=== PATIENT | male | born 1970 | race Hispanic/Latino ===

== ENCOUNTER 2018-10-14 13:34 | Inpatient (IN) | payer OTHER ==
--- NOTE | 2018-10-14 14:07 | ED PDOC ---
Arrival/HPI - General Chief Complaint: Abnormal Skin Integrity Time Seen by Provider: 10/14/18 13:34 Historian: Patient - History of Present Illness Narrative History of Present Illness (Text): 48 y/o male with PMH of HTN, colitis presents to the ED sent by Michael Lopez NP, working with Dr. Koehler c/o left hand 3rd digit swelling and redness x 2 weeks. Pt originally had pain in the finger on 10/05/18 and was started on PO Ba ctrim by PMD on 10/06/18 for presumed cellulitis. The finger became more red, swollen, and warm to touch with a collection of pus at the base of the nail. Pt then underwent I&D on the finger at an urgent care center on 10/10/18. Pt was placed on clindamycin but had no improvement, so he was sent into the ED for IV antibiotics today. Denies trauma/injury, fever, chills, numbness, paresthesias, weakness, dizziness, nausea, vomiting, SOB, or any other associated symptoms. Past Medical History - Provider Review Nursing Documentation Reviewed: Yes Primary Care Provider: Shruthi Lopez - Infectious Disease Hx of Infectious Diseases: None - Cardiac Hx Cardiac Disorders: Yes Hx Hypertension: Yes - Pulmonary Hx Respiratory Disorders: No - Neurological Hx Neurological Disorder: No - HEENT Hx HEENT Disorder: No - Renal Hx Renal Disorder: No - Endocrine/Metabolic Hx Endocrine Disorders: No - Hematological/Oncological Hx Blood Disorders: No - Integumentary Hx Dermatological Disorder: No - Musculoskeletal/Rheumatological Hx Musculoskeletal Disorders: No - Gastrointestinal Hx Gastrointestinal Disorders: No - Genitourinary/Gynecological Hx Genitourinary Disorders: No - Psychiatric Hx Psychophysiologic Disorder: No Hx Substance Use: No - Anesthesia Hx Anesthesia: No Hx Anesthesia Reactions: No Hx Malignant Hyperthermia: No Family/Social History - Physician Review Nursing Documentation Reviewed: Yes Family/Social History: No Known Family HX Smoking Status: Never Smoked Hx Alcohol Use: Yes Frequency of alcohol use: Socially Hx Substance Use: No Allergies/Home Meds Allergies/Adverse Reactions: Allergies Penicillins Allergy (Verified 10/14/18 15:58) URTICARIA Home Medications: Home Meds Medication Instructions Recorded Confirmed Azilsartan Med/Chlorthalidone 12.5 mg PO DAILY 10/14/18 10/14/18 [Edarbyclor 40-12.5 mg Tablet] Clindamycin [Cleocin] 300 mg PO Q6 10/14/18 10/14/18 Latanoprost [Xalatan] 1 drop OD DAILY 10/14/18 10/14/18 Mesalamine [Lialda] 2.4 gm PO DAILY 10/14/18 10/14/18 Review of Systems - Review of Systems Constitutional: Normal. absent: Fevers Eyes: Normal. absent: Vision Changes ENT: Normal. absent: Sore Throat, Sinus Congestion Respiratory: Normal. absent: SOB, Cough Cardiovascular: Normal. absent: Chest Pain, Palpitations, Syncope Gastrointestinal: Normal. absent: Abdominal Pain, Nausea, Vomiting Genitourinary Male: Normal. absent: Dysuria, Frequency Musculoskeletal: Normal. absent: Back Pain, Neck Pain Skin: Cellulitis Neurological: Normal. absent: Headache, Dizziness Physical Exam Vital Signs Reviewed: Yes Vital Signs Temp Pulse Resp BP Pulse Ox 10/14/18 13:44 97.9 F 101 H 18 145/81 98 Temperature: Afebrile Blood Pressure: Normal Pulse: Tachycardic Respiratory Rate: Normal Appearance: Positive for: Well-Appearing, Non-Toxic, Comfortable Pain Distress: None Mental Status: Positive for: Alert and Oriented X 3 - Systems Exam Head: Present: Atraumatic, Normocephalic Pupils: Present: PERRL Extroacular Muscles: Present: EOMI Conjunctiva: Present: Normal Mouth: Present: Moist Mucous Membranes Neck: Present: Normal Range of Motion Respiratory/Chest: Present: Clear to Auscultation, Good Air Exchange. No: Respiratory Distress, Accessory Muscle Use Cardiovascular: Present: Regular Rate and Rhythm, Normal S1, S2. No: Murmurs Abdomen: No: Tenderness, Distention, Peritoneal Signs Back: Present: Normal Inspection Upper Extremity: Present: NORMAL PULSES, Tenderness ( distal left hand 3rd digit over DIP and distal phalanx), Swelling (distal left hand 3rd digit at base of nail with purulent drainage; no fluctuance), Erythema (distal left hand 3rd digit with streaking proximally), Neurovascularly Intact, Temperature Abnormalties (warmth to distal left hand 3rd digit), Capillary Refill < 2s. No: Cyanosis, Edema, Normal ROM (decreased left hand 3rd digit DIP) Lower Extremity: Present: Normal Inspection. No: Edema Neurological: Present: GCS=15, CN II-XII Intact, Speech Normal, Motor Func Grossly Intact, Normal Sensory Function, Gait Normal Skin: Present: Warm, Dry, Normal Color. No: Rashes Psychiatric: Present: Alert, Oriented x 3, Normal Insight, Normal Concentration, Normal Affect, Normal Mood Medical Decision Making ED Course and Treatment: Initial Plan: * Labs * Cultures * Left hand XR * IVF Bloodwork reviewed, unremarkable. WBC 11.1 without left shift. XR shows no bony destruction. 15:35 Spoke with [employer] MANAGER Janny who accepted patient for inpatient admission to Dr. Koehler's service. States no preference in antibiotic therapy. Pt allergic to penicillin. Pt with stable vitals at this time, resting comfortably in stretcher. Updated with change in disposition. 17:19 Patient seen at bedside by Dr. Javier for general surgery consult as requested by Dr. Koehler - Lab Interpretations Lab Results: 10/14/18 14:30 10/14/18 14:30 Lab Results 10/14/18 14:40: PT 13.4 H, INR 1.21, APTT 35.5 10/14/18 14:30: Sodium 138, Potassium 3.8, Chloride 100, Carbon Dioxide 26, Anio n Gap 16, BUN 23 H, Creatinine 1.1, Est GFR ( Amer) > 60, Est GFR (Non-Af Amer) > 60, Random Glucose 144 H, Calcium 9.5, Total Bilirubin 0.4, AST 36, ALT 33, Alkaline Phosphatase 72, Total Protein 8.2, Albumin 4.5, Globulin 3.8, Albumin/Globulin Ratio 1.2 10/14/18 14:30: WBC 11.1 H, RBC 5.06, Hgb 14.5, Hct 44.0, MCV 87.0, MCH 28.7, MCHC 33.0, RDW 13.0, Plt Count 395, MPV 10.0, Neut % (Auto) 62.5, Lymph % (Auto) 24.1, [place] % (Auto) 7.1 H, Eos % (Auto) 5.6 H, Baso % (Auto) 0.7, Lymph # (Auto) 2.7, [place] # (Auto) 0.8 H, Eos # (Auto) 0.6, Baso # (Auto) 0.08, Absolute Neuts (auto) 6.94 H I have reviewed the lab results: Yes - RAD Interpretation Narrative RAD Interpretations (Text): 10/14/18 17:30 Left Hand XR: FINDINGS: BONES: There is a soft tissue defect over the dorsum of the 3rd distal phalanx. There is no bony destruction JOINTS: Normal. No osteoarthritic changes. SOFT TISSUES: Normal. OTHER FINDINGS: None. IMPRESSION: There is a soft tissue defect over the dorsum of the 3rd distal phalanx. There is no bony destruction Conveyor Monitor: Radiologist Disposition/Present on Arrival - Present on Arrival Any Indicators Present on Arrival: No History of DVT/PE: No History of Uncontrolled Diabetes: No Urinary Catheter: No History of Decub. Ulcer: No History Surgical Site Infection Following: None - Disposition Have Diagnosis and Disposition been Completed?: Yes Diagnosis: Cellulitis Disposition: HOSPITALIZED Disposition Time: 15:00 Patient Problems: Current Active Problems Problem Status Onset Cellulitis Acute Condition: STABLE
[2018-10-14 14:44] LABS: BASO # 0.08 K/mm3 (0.0-2.0); BASO % 0.7 % (0.0-3.0); EOS # 0.6 (0.0-0.7); EOS % 5.6 % (1.5-5.0); HEMOGLOBIN 14.5 g/dL (14.0-18.0); LYMPH # 2.7 (1.2-3.4); LYMPH % 24.1 % (22.0-35.0); MEAN CORPUSCULAR HEMOGLOBIN 28.7 pg (25.0-35.0); MONO # 0.8 (0.1-0.6); MONO % 7.1 % (1.0-6.0); RBC 5.06 10^6/uL (3.5-6.1); WHITE BLOOD COUNT 11.1 10^3/uL (4.5-11.0)
[2018-10-14 14:48] LABS: ALB/GLOB RATIO 1.2 (1.1-1.8); ALBUMIN 4.5 g/dL (3.0-4.8); ALT/SGPT 33 U/L (7-56); AST/SGOT 36 U/L (17-59); BLOOD UREA NITROGEN 23 mg/dL (7-21); CALCIUM 9.5 mg/dL (8.4-10.5); GFR NON-AFRICAN AMERICAN > 60
[2018-10-14 15:08] LABS: INR 1.21; PARTIAL THROMBOPLASTIN TIME 35.5 Seconds (26.9-38.3); PROTHROMBIN TIME 13.4 SECONDS (9.4-12.5)
[2018-10-14] MEDS ORDERED: Piperacillin/Tazobact 3.375 gm 100 ML IVPB STA (15:32)
[2018-10-14] MEDS ORDERED: Vancomycin 1gm in NS 250ml 1 GM/250 ML BAG IVPB STA ×2 (15:32→15:59)
--- NOTE | 2018-10-14 15:43 | RAD ---
PROCEDURE: Left Hand 3rd digit radiographs. HISTORY: r/o osteo DIP/PIP COMPARISON: None. TECHNIQUE: 3 views obtained. FINDINGS: BONES: There is a soft tissue defect over the dorsum of the 3rd distal phalanx. There is no bony destruction JOINTS: Normal. No osteoarthritic changes. SOFT TISSUES: Normal. OTHER FINDINGS: None. IMPRESSION: There is a soft tissue defect over the dorsum of the 3rd distal phalanx. There is no bony destruction
[2018-10-14] MEDS ORDERED: Clindamycin 600mg/50ml D5W 600 MG/50 ML VIAL IVPB STA (15:55)
[2018-10-14] MEDS: Sodium Chloride 0.9% 1,000 ML IV SCH (16:08)
[2018-10-14] MEDS ORDERED: Bacitracin 500 Units/gm Oint Foilpak UD TOP ONE ×2 (18:14→21:30)
[2018-10-14] MEDS ORDERED: Povidone Iodine Topical 10% Sol TOP ONE (18:14)
[2018-10-14 18:52] VITALS: BMI 34.9
--- NOTE | 2018-10-14 19:37 | CP.PCM.CON ---
History of Present Illness - History of Present Illness History of Present Illness: General Surgery Consult Re: Left 3rd digit cellulitis HPI: 48[address] Koehler to the ED complaining of left hand 3rd digit swelling and redness x 2 weeks. Pain began on 10/05/18 and was lanced later 10/10/18 with some purulent output. Pt has been taking Clindamycin, however, he has not seen much improvement. Pain is now a throbbing in his finger. Denies fever, chills, nausea, emesis, constipation, diarrhea, abd pain, arm pain, chest pain, or any other complaints. PMH: HTN, Ulcerative colitis PSH: Cornea transplant SH: 1 cigar/month, 1x/week social EtOh, no drug use. FH: Mother - HTN Meds: See MAR All: PCN Review of Systems - Review of Systems All systems: reviewed and no additional remarkable complaints except (as per HPI) Past Patient History - Infectious Disease Hx of Infectious Diseases: None - Past Social History Smoking Status: occasional - CARDIAC Hx Cardiac Disorders: Yes Hx Hypertension: Yes - PULMONARY Hx Respiratory Disorders: No - NEUROLOGICAL Hx Neurological Disorder: No - HEENT Hx HEENT Problems: No Other/Comment: right eye cornea transplant - RENAL Hx Chronic Kidney Disease: No - ENDOCRINE/METABOLIC Hx Endocrine Disorders: No - HEMATOLOGICAL/ONCOLOGICAL Hx Blood Disorders: No - INTEGUMENTARY Hx Dermatological Problems: No - MUSCULOSKELETAL/RHEUMATOLOGICAL Hx Musculoskeletal Disorders: No Hx Falls: No - GASTROINTESTINAL Hx Gastrointestinal Disorders: No Other/Comment: ulcerative colitis - GENITOURINARY/GYNECOLOGICAL Hx Genitourinary Disorders: No - PSYCHIATRIC Hx Psychophysiologic Disorder: No Hx Substance Use: No - SURGICAL HISTORY Hx Surgeries: Yes Other/Comment: right eye cornea transplant - ANESTHESIA Hx Anesthesia: No Hx Anesthesia Reactions: No Hx Malignant Hyperthermia: No Meds Allergies/Adverse Reactions: Allergies Allergy/AdvReac Type Severity Reaction Status Date / Time Penicillins Allergy URTICARIA Verified 10/14/18 15:58 - Medications Medications: Current Medications Sodium Chloride (Sodium Chloride 0.9%) 1,000 mls @ 100 mls/hr IV .Q10H [facility] Last Admin: 10/14/18 16:08 Dose: 100 mls/hr Clindamycin Phosphate 900 mg/ (Sodium Chloride) 106 mls @ 106 mls/hr IVPB Q8 [facility]; Protocol Physical Exam - Constitutional Appears: Non-toxic, No Acute Distress - Head Exam Head Exam: ATRAUMATIC, NORMOCEPHALIC - Eye Exam Eye Exam: EOMI, PERRL. absent: Scleral icterus - ENT Exam ENT Exam: Mucous Membranes Moist Additional comments: trachea midline - Neck Exam Neck exam: Positive for: Full Rom. Negative for: Tenderness - Respiratory Exam Respiratory Exam: NORMAL BREATHING PATTERN. absent: Respiratory Distress - Cardiovascular Exam Cardiovascular Exam: RRR. absent: Bradycardia, Tachycardia - GI/Abdominal Exam GI & Abdominal Exam: Soft. absent: Distended, Tenderness - Rectal Exam Rectal Exam: Deferred - Extremities Exam Extremities exam: Positive for: normal capillary refill. Negative for: calf tenderness Additional comments: Tender, swollen, and erythematous over L distal 3rd digit over DIP and distal phalanx, Base of nail with small amount of purulent drainage, no fluctuance. Shaheen rovascularly intact, with decreased left hand 3rd digit DIP ROM due to swelling and pain - Back Exam Back exam: absent: CVA tenderness (L), CVA tenderness (R) - Neurological Exam Neurological exam: Alert, Oriented x3 - Skin Skin Exam: Dry, Warm Results - Vital Signs Recent Vital Signs: Last Vital Signs Temp 97.9 F 10/14/18 13:44 Pulse 80 10/14/18 18:42 Resp 18 10/14/18 18:42 BP 145/81 10/14/18 13:44 Pulse Ox 99 10/14/18 15:00 - Labs Result Diagrams: 10/14/18 14:30 10/14/18 14:30 Labs: Laboratory Results - last 24 hr 10/14/18 10/14/18 10/14/18 14:30 14:30 14:40 WBC 11.1 H RBC 5.06 Hgb 14.5 Hct 44.0 MCV 87.0 MCH 28.7 MCHC 33.0 RDW 13.0 Plt Count 395 MPV 10.0 Neut % (Auto) 62.5 Lymph % (Auto) 24.1 [place] % (Auto) 7.1 H Eos % (Auto) 5.6 H Baso % (Auto) 0.7 Lymph # (Auto) 2.7 [place] # (Auto) 0.8 H Eos # (Auto) 0.6 Baso # (Auto) 0.08 Absolute Neuts (auto) 6.94 H PT 13.4 H INR 1.21 APTT 35.5 Sodium 138 Potassium 3.8 Chloride 100 Carbon Dioxide 26 Anion Gap 16 BUN 23 H Creatinine 1.1 Est GFR ( Amer) > 60 Est GFR (Non-Af Amer) > 60 Random Glucose 144 H Calcium 9.5 Total Bilirubin 0.4 AST 36 ALT 33 Alkaline Phosphatase 72 Total Protein 8.2 Albumin 4.5 Globulin 3.8 Albumin/Globulin Ratio 1.2 - Imaging and Cardiology L hand XR Status: Image reviewed by me, Report reviewed by me Assessment & Plan - Assessment and Plan (Free Text) Assessment: 48M with L hand 3rd digit cellulitis Plan: - Continue Abx per ID - Q6H Soak affected finger in a 50/50 solution of betadine and warm saline in a cup for 20 minutes. Afterwards, apply thin layer of bacitracin and wrap lightly with kerlex - F/U wound cx - Monitor for possibility of felon development. D/W Dr. Yaya Jiménez PGY4
[2018-10-14] MEDS: Linezolid 600 mg in D5W 300 ml 600 MG/300 ML BAG IVPB SCH (21:01)
[2018-10-14] MEDS: Acyclovir 500 MG in Sodium Chloride 0.9% 100 ML IV SCH (21:16)
[2018-10-15] MEDS: Acyclovir 500 MG in Sodium Chloride 0.9% 100 ML IV SCH ×3 (05:19→21:13)
[2018-10-15] MEDS ORDERED: Bacitracin 500 Units/gm Oint Foilpak UD TOP ONE (06:06)
--- NOTE | 2018-10-15 07:03 | CP.PCM.CON ---
<Malvin Francis - Last Filed: 10/15/18 07:50> History of Present Illness - History of Present Illness History of Present Illness: Infectious disease consult note: 48-year-old male past medical history of hypertension, ulcerative colitis presents to the hospital with left hand third digit swelling, erythema, and tenderness. Patient states that he first noticed the pain approximately 10 days ago. At this time he went to his PMD which prescribed him Bactrim for presumed cellulitis. He states that initially he was feeling better however he became subsequently worse and went to an urgent care. At this time he was I&D and was placed in clindamycin. For the next few days he was feeling better however the tenderness resumed. He denies any fevers or chills. He does state that it did drain purulent fluid when it was I&D. 12 point ROS performed and negative other than stated above PMH: As above PSH: Cornea transplant Allergies: Penicillin SH: Social drinker, denies smoking or drugs FH: Mother with HTN Review of Systems - Review of Systems All systems: reviewed and no additional remarkable complaints except Past Patient History - Infectious Disease Hx of Infectious Diseases: None - Past Social History Smoking Status: Never Smoked - CARDIAC Hx Cardiac Disorders: Yes Hx Hypertension: Yes - PULMONARY Hx Respiratory Disorders: No - NEUROLOGICAL Hx Neurological Disorder: No - HEENT Hx HEENT Problems: No - RENAL Hx Chronic Kidney Disease: No - ENDOCRINE/METABOLIC Hx Endocrine Disorders: No - HEMATOLOGICAL/ONCOLOGICAL Hx Blood Disorders: No - INTEGUMENTARY Hx Dermatological Problems: No - MUSCULOSKELETAL/RHEUMATOLOGICAL Hx Musculoskeletal Disorders: No - GASTROINTESTINAL Hx Gastrointestinal Disorders: No - GENITOURINARY/GYNECOLOGICAL Hx Genitourinary Disorders: No - PSYCHIATRIC Hx Psychophysiologic Disorder: No Hx Substance Use: No - SURGICAL HISTORY Hx Surgeries: Yes Other/Comment: right eye cornea transplant - ANESTHESIA Hx Anesthesia: No Hx Anesthesia Reactions: No Hx Malignant Hyperthermia: No Meds Allergies/Adverse Reactions: Allergies Allergy/AdvReac Type Severity Reaction Status Date / Time Penicillins Allergy URTICARIA Verified 10/14/18 15:58 - Medications Medications: Current Medications Sodium Chloride (Sodium Chloride 0.9%) 1,000 mls @ 100 mls/hr IV .Q10H [facility] Last Admin: 10/14/18 16:08 Dose: 100 mls/hr Linezolid (Zyvox 600mg/300ml D5w) 600 mg in 300 mls @ 200 mls/hr IVPB Q12 [facility]; Protocol Stop: 10/21/18 22:01 Last Admin: 10/14/18 21:01 Dose: 200 mls/hr Acyclovir 500 mg/ Sodium (Chloride) 100 mls @ 100 mls/hr IV Q8 [facility]; Protocol Stop: 10/21/18 22:01 Last Admin: 10/15/18 05:19 Dose: 100 mls/hr Physical Exam - Constitutional Appears: No Acute Distress - Head Exam Head Exam: ATRAUMATIC, NORMOCEPHALIC - Eye Exam Eye Exam: EOMI - ENT Exam ENT Exam: Mucous Membranes Moist - Respiratory Exam Respiratory Exam: Clear to Auscultation Bilateral. absent: Rales, Wheezes - Cardiovascular Exam Cardiovascular Exam: REGULAR RHYTHM, +S1, +S2 - GI/Abdominal Exam GI & Abdominal Exam: Normal Bowel Sounds, Soft. absent: Tenderness - Extremities Exam Additional comments: L hand third digit: a few vesicles and surrounding erythema, with skin flap following ID - Psychiatric Exam Psychiatric exam: Normal Mood - Skin Skin Exam: Dry, Warm Results - Vital Signs Recent Vital Signs: Last Vital Signs Temp 97.8 F 10/14/18 22:59 Pulse 82 10/14/18 22:59 Resp 18 10/14/18 22:59 BP 114/64 10/14/18 22:59 Pulse Ox 95 10/14/18 22:59 - Labs Result Diagrams: 10/15/18 06:15 10/14/18 14:30 Labs: Laboratory Results - last 24 hr 10/14/18 10/14/18 10/14/18 14:30 14:30 14:40 WBC 11.1 H RBC 5.06 Hgb 14.5 Hct 44.0 MCV 87.0 MCH 28.7 MCHC 33.0 RDW 13.0 Plt Count 395 MPV 10.0 Neut % (Auto) 62.5 Lymph % (Auto) 24.1 [place] % (Auto) 7.1 H Eos % (Auto) 5.6 H Baso % (Auto) 0.7 Lymph # (Auto) 2.7 [place] # (Auto) 0.8 H Eos # (Auto) 0.6 Baso # (Auto) 0.08 Absolute Neuts (auto) 6.94 H ESR PT 13.4 H INR 1.21 APTT 35.5 Sodium 138 Potassium 3.8 Chloride 100 Carbon Dioxide 26 Anion Gap 16 BUN 23 H Creatinine 1.1 Est GFR ( Amer) > 60 Est GFR (Non-Af Amer) > 60 Random Glucose 144 H Calcium 9.5 Total Bilirubin 0.4 AST 36 ALT 33 Alkaline Phosphatase 72 Total Protein 8.2 Albumin 4.5 Globulin 3.8 Albumin/Globulin Ratio 1.2 10/14/18 20:00 WBC RBC Hgb Hct MCV MCH MCHC RDW Plt Count MPV Neut % (Auto) Lymph % (Auto) [place] % (Auto) Eos % (Auto) Baso % (Auto) Lymph # (Auto) [place] # (Auto) Eos # (Auto) Baso # (Auto) Absolute Neuts (auto) ESR 19 H PT INR APTT Sodium Potassium Chloride Carbon Dioxide Anion Gap BUN Creatinine Est GFR ( Amer) Est GFR (Non-Af Amer) Random Glucose Calcium Total Bilirubin AST ALT Alkaline Phosphatase Total Protein Albumin Globulin Albumin/Globulin Ratio Assessment & Plan - Assessment and Plan (Free Text) Assessment: Herpetic brent Left hand third digit cellulitis s/p I&D at urgent care in [facility] Ulcerative colitis Hypertension Patient was started on linezolid and started on Acyclovir MRI ordered to r/o osteo F/u HIV Follow-up wound cultures Follow-up surgery recommendations Hand x-ray showed no osteomyelitis, however did show soft tissue defect over the dorsum aspect of the third digit Continue to monitor for any changes Case and plan to be reviewed and discussed with Dr. Frazier. <Jeferson Frazier - Last Filed: 10/15/18 07:54> Meds - Medications Medications: Current Medications Sodium Chloride (Sodium Chloride 0.9%) 1,000 mls @ 100 mls/hr IV .Q10H [facility] Last Admin: 10/14/18 16:08 Dose: 100 mls/hr Linezolid (Zyvox 600mg/300ml D5w) 600 mg in 300 mls @ 200 mls/hr IVPB Q12 [facility]; Protocol Stop: 10/21/18 22:01 Last Admin: 10/14/18 21:01 Dose: 200 mls/hr Acyclovir 500 mg/ Sodium (Chloride) 100 mls @ 100 mls/hr IV Q8 [facility]; Protocol Stop: 10/21/18 22:01 Last Admin: 10/15/18 05:19 Dose: 100 mls/hr Results - Vital Signs Recent Vital Signs: Last Vital Signs Temp 97.6 F 10/15/18 06:00 Pulse 73 10/15/18 06:00 Resp 18 10/15/18 06:00 BP 118/74 10/15/18 06:00 Pulse Ox 96 10/15/18 06:00 - Labs Result Diagrams: 10/15/18 06:15 10/14/18 14:30 Labs: Laboratory Results - last 24 hr 10/14/18 10/14/18 10/14/18 14:30 14:30 14:40 WBC 11.1 H RBC 5.06 Hgb 14.5 Hct 44.0 MCV 87.0 MCH 28.7 MCHC 33.0 RDW 13.0 Plt Count 395 MPV 10.0 Neut % (Auto) 62.5 Lymph % (Auto) 24.1 [place] % (Auto) 7.1 H Eos % (Auto) 5.6 H Baso % (Auto) 0.7 Lymph # (Auto) 2.7 [place] # (Auto) 0.8 H Eos # (Auto) 0.6 Baso # (Auto) 0.08 Absolute Neuts (auto) 6.94 H ESR PT 13.4 H INR 1.21 APTT 35.5 Sodium 138 Potassium 3.8 Chloride 100 Carbon Dioxide 26 Anion Gap 16 BUN 23 H Creatinine 1.1 Est GFR ( Amer) > 60 Est GFR (Non-Af Amer) > 60 Random Glucose 144 H Calcium 9.5 Total Bilirubin 0.4 AST 36 ALT 33 Alkaline Phosphatase 72 Total Protein 8.2 Albumin 4.5 Globulin 3.8 Albumin/Globulin Ratio 1.2 10/14/18 10/15/18 20:00 06:15 WBC 10.2 RBC 4.84 Hgb 13.8 L Hct 43.0 MCV 88.8 MCH 28.5 MCHC 32.1 RDW 13.1 Plt Count 347 MPV 10.1 Neut % (Auto) 42.9 L Lymph % (Auto) 38.1 H [place] % (Auto) 8.2 H Eos % (Auto) 10.0 H Baso % (Auto) 0.8 Lymph # (Auto) 3.9 H [place] # (Auto) 0.8 H Eos # (Auto) 1.0 H Baso # (Auto) 0.08 Absolute Neuts (auto) 4.37 ESR 19 H PT INR APTT Sodium Potassium Chloride Carbon Dioxide Anion Gap BUN Creatinine Est GFR ( Amer) Est GFR (Non-Af Amer) Random Glucose Calcium Total Bilirubin AST ALT Alkaline Phosphatase Total Protein Albumin Globulin Albumin/Globulin Ratio Attending/Attestation - Attestation I have personally seen and examined this patient.: Yes I have fully participated in the care of the patient.: Yes I have reviewed all pertinent clinical information: Yes
[2018-10-15 07:08] LABS: BASO # 0.08 K/mm3 (0.0-2.0); BASO % 0.8 % (0.0-3.0); HEMOGLOBIN 13.8 g/dL (14.0-18.0); LYMPH # 3.9 (1.2-3.4); LYMPH % 38.1 % (22.0-35.0); MEAN CELL VOLUME 88.8 fl (80.0-105.0); MEAN CORPUSCULAR HEMOGLOBIN 28.5 pg (25.0-35.0); MEAN CORPUSCULAR HGB CONC 32.1 g/dl (31.0-37.0); MEAN PLATELET VOLUME 10.1 fl (7.0-11.0); MONO # 0.8 (0.1-0.6); MONO % 8.2 % (1.0-6.0); RBC 4.84 10^6/uL (3.5-6.1); RED CELL DISTRIBUTION WIDTH 13.1 % (11.5-14.5); WHITE BLOOD COUNT 10.2 10^3/uL (4.5-11.0)
--- NOTE | 2018-10-15 08:20 | HP ---
DATE OF EXAM: 10/14/2018 HISTORY OF PRESENT ILLNESS: A 48-year-old white male with a long history of ulcerative colitis on Lialda by Dr. Elias. Patient has no medical history except for hypertension which is controlled. Patient recently developed a left third finger infection in the dorsal aspect of the finger above the nail bed. Patient initially was put on p.o. antibiotics without any improvement, was sent to have an I and D done. Patient had an I and D done at a local clinic and no change of antibiotics at that time. Repeat observation. Patient had a change of the antibiotics without any improvement. Patient again was seen in the office with worsening cellulitis of the finger and was admitted to the hospital through the emergency room. Patient denies any fevers or chills. Denies any red streaking of the arm. Denies any evidence of swollen glands in the epitrochlear space, in the axilla or the neck. Patient denies any recent trauma. He has no cats or dogs. 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 The course of this infection goes back approximately to 10/05/2018, today is 10/14/2018. SOCIAL HISTORY: Patient is a nonsmoker and nondrinker. MEDICATIONS: As stated he takes Lialda for ulcerative colitis and a blood pressure medication. REVIEW OF SYSTEMS: GENERAL: Positive for pain in the finger without fevers or chills. GI: Negative for nausea, vomiting, or diarrhea. RESPIRATORY: Negative for shortness of breath, cough, or sputum production. CARDIAC: Negative for palpitations, chest pain, or syncope. NEUROLOGIC: Negative for headaches, dizziness, or lightheadedness, etc. : Negative. PHYSICAL EXAMINATION: GENERAL: Shows a well-developed, slightly obese white male, in mild distress. HEENT: Essentially within normal limits. Pain is approximately 4/10. HEART: Regular sinus rhythm. CHEST: Clear to auscultation and percussion. ABDOMEN: Obese, but benign. EXTREMITIES: Without cyanosis, clubbing, or edema. SKIN: Shows a left third finger cellulitic changes with purulent discharge, open wound, slight erythema of the proximal left third digit, also slight erythema of the third MCP joint. There is no adenopathy noted either at the axilla, infra or supraclavicular space, at the neck or epitrochlear space. IMPRESSION: Cellulitis in a newly compromised patient on Lialda, not responding to p.o. antibiotics and incision and drainage. PLAN: Plan is for IV antibiotics and surgical consultation. We x-rayed the finger to rule out osteoporosis. Culture. Jorgito Koehler MD
[2018-10-15] MEDS: Sodium Chloride 0.9% 1,000 ML IV SCH ×2 (09:46→14:17)
[2018-10-15] MEDS: Linezolid 600 mg in D5W 300 ml 600 MG/300 ML BAG IVPB SCH ×2 (09:48→21:36)
--- NOTE | 2018-10-15 10:49 | PN ---
DATE: 10/15/2018 SUBJECTIVE: This is a 48-year-old white male admitted to the hospital with cellulitic changes of the left third finger on the dorsal aspect. The patient was seen in consultation by Dr. Frazier, who felt that possibly he has early presentation of herpetic brent. The patient is on IV antibiotics. His white count has dropped from 13,000 to 10,000. He is afebrile. Vital signs are stable. He has no spreading cellulitis, distal meningitis. The patient has minimal pain today. He is on IV antibiotics and antiviral medications. He had an I and D done. He is going to have an MRI of the finger to rule out any bone contusion or infection and he otherwise is afebrile. OBJECTIVE: CHEST: Clear. HEART: Regular sinus rhythm. ABDOMEN: Soft. Jorgito Koehler MD
--- NOTE | 2018-10-15 13:01 | CP.PCM.PN ---
Subjective - Date & Time of Evaluation Date of Evaluation: 10/15/18 Time of Evaluation: 09:30 - Subjective Subjective: General Surgery Dr. Javier Pt seen and examined @bedside. No acute events overnight. Pt has no complaints. reports improved pain and ROM to L 3rd finger. denies F/C, N/V. tolerating diet. Objective - Vital Signs/Intake and Output Vital Signs (last 24 hours): Temp Pulse Resp BP Pulse Ox 97.6 F 73 18 118/74 96 10/15/18 06:00 10/15/18 06:00 10/15/18 06:00 10/15/18 06:00 10/15/18 06:00 Intake and Output: 10/15/18 10/15/18 06:59 18:59 Intake Total 1200 120 Output Total 0 Balance 1200 120 - Medications Medications: Current Medications Sodium Chloride (Sodium Chloride 0.9%) 1,000 mls @ 100 mls/hr IV .Q10H [facility] Last Admin: 10/15/18 09:46 Dose: 100 mls/hr Linezolid (Zyvox 600mg/300ml D5w) 600 mg in 300 mls @ 200 mls/hr IVPB Q12 [facility]; Protocol Stop: 10/21/18 22:01 Last Admin: 10/15/18 09:48 Dose: 200 mls/hr Acyclovir 500 mg/ Sodium (Chloride) 100 mls @ 100 mls/hr IV Q8 [facility]; Protocol Stop: 10/21/18 22:01 Last Admin: 10/15/18 05:19 Dose: 100 mls/hr - Labs Labs: 10/15/18 06:15 10/14/18 14:30 PT 13.4 SECONDS (9.4-12.5) H 10/14/18 14:40 INR 1.21 10/14/18 14:40 APTT 35.5 Seconds (26.9-38.3) 10/14/18 14:40 - Constitutional Appears: Non-toxic, No Acute Distress - Head Exam Head Exam: NORMAL INSPECTION - Eye Exam Eye Exam: Normal appearance - ENT Exam ENT Exam: Mucous Membranes Moist - Respiratory Exam Respiratory Exam: NORMAL BREATHING PATTERN. absent: Accessory Muscle Use, Respiratory Distress - Cardiovascular Exam Cardiovascular Exam: absent: Bradycardia, Tachycardia - GI/Abdominal Exam GI & Abdominal Exam: Soft. absent: Distended - Extremities Exam Additional comments: L 3rd finger w/ dressing c/d/i no erythema to hand decreased 3rd finger flexion - Neurological Exam Neurological Exam: Alert, Awake, Oriented x3 - Psychiatric Exam Psychiatric exam: Normal Affect, Normal Mood - Skin Skin Exam: Dry, Normal Color, Warm Assessment and Plan - Assessment and Plan (Free Text) Assessment: 48 y/o M with L hand 3rd digit cellulitis Plan: - Cont Abx per ID - Q6H Soak affected finger in a 50/50 solution of betadine and warm saline in a cup for 20 minutes. Afterwards, apply thin layer of bacitracin and wrap lightly with kerlex - f/uwound Cx - f/u MRI - recommend Hand consult - non-narcotic pain management Pt discussed w/ Dr. Yaya Granados PGY3
--- NOTE | 2018-10-15 13:27 | MRI ---
Date of service: 10/15/2018 PROCEDURE: MRI of the left hand without contrast HISTORY: r/o osteo of L hand third digit COMPARISON: TECHNIQUE: MRI of the left hand was performed in multiple planes using multiple pulse sequences. FINDINGS: There is marrow edema in the 3rd middle and distal phalanx consistent with osteomyelitis. There is also soft tissue edema. The remainder of the hand is unremarkable. There is a soft tissue defect on the dorsum of the distal phalanx IMPRESSION: There is marrow edema in the 3rd middle and distal phalanx consistent with osteomyelitis. There is also soft tissue edema. The remainder of the hand is unremarkable
[2018-10-15] MEDS: Bacitracin 500 Units/gm Oint Foilpak UD TOP SCH ×4 (14:16→23:06)
[2018-10-15] MEDS ORDERED: Povidone Iodine Topical 10% Sol TOP ONE (17:56)
[2018-10-15 22:34] VITALS: TEMP 98
[2018-10-16] MEDS: Acyclovir 500 MG in Sodium Chloride 0.9% 100 ML IV SCH (06:04)
[2018-10-16] MEDS: Bacitracin 500 Units/gm Oint Foilpak UD TOP SCH ×2 (06:04→12:06)
[2018-10-16 07:44] VITALS: BP 136/80; PULSE 90; RESP 20; O2SAT 96
[2018-10-16] MEDS: Linezolid 600 mg in D5W 300 ml 600 MG/300 ML BAG IVPB SCH (09:02)
--- NOTE | 2018-10-16 10:38 | PN ---
DATE: 10/16/2018 SUBJECTIVE: A 48-year-old white male admitted to the hospital with a left third finger infection who was found on MRI to have marrow edema consistent with osteomyelitis and possibly started as an herpetic brent which was I and D at a [facility], developed a spreading cellulitis on the finger in the distal aspect of the third digit of the left hand. The patient has been afebrile. His white count has dropped, still slightly elevated 10.2, it was as high as 13. PHYSICAL EXAMINATION: He is afebrile. Vitals signs are stable. PLAN: To discuss with possible IV versus p.o. antibiotics for the next 4 to 6 weeks verus PICC line with IV antibiotics at home. The patient is on IV antibiotics and antiviral medication. He is without pain. The finger is improving slowly, but the MRI is definitely positive for marrow edema consistent with osteomyelitis. Jorgito Koehler MD
--- NOTE | 2018-10-16 15:56 | CP.PCM.PN ---
<Malvin Francis - Last Filed: 10/16/18 15:58> Subjective - Date & Time of Evaluation Date of Evaluation: 10/16/18 Time of Evaluation: 10:00 - Subjective Subjective: Infectious disease progress note: Patient seen and examined at bedside. No acute events overnight. C/o of mild pain to his hand 3rd digit. No other complaints. 12 point ROS performed and negative unless stated above. Objective - Vital Signs/Intake and Output Vital Signs (last 24 hours): Temp Pulse Resp BP Pulse Ox 98 F 90 20 136/80 96 10/16/18 06:00 10/16/18 06:00 10/16/18 06:00 10/16/18 06:00 10/16/18 06:00 Intake and Output: 10/16/18 10/16/18 06:59 18:59 Intake Total 620 480 Balance 620 480 - Medications Medications: Current Medications Bacitracin (Bacitracin) 1 ea TOP 0000,0600,1200,1800 [facility] Last Admin: 10/16/18 12:06 Dose: 1 ea Sodium Chloride (Sodium Chloride 0.9%) 1,000 mls @ 100 mls/hr IV .Q10H [facility] Last Admin: 10/15/18 14:17 Dose: 100 mls/hr Linezolid (Zyvox) 600 mg PO BID [facility]; Protocol Stop: 11/13/18 18:01 Valacyclovir HCl (Valtrex) 1 gm PO BID [facility]; Protocol Stop: 11/13/18 18:01 - Labs Labs: 10/15/18 06:15 10/14/18 14:30 PT 13.4 SECONDS (9.4-12.5) H 10/14/18 14:40 INR 1.21 10/14/18 14:40 APTT 35.5 Seconds (26.9-38.3) 10/14/18 14:40 - Constitutional Appears: No Acute Distress - Head Exam Head Exam: ATRAUMATIC, NORMOCEPHALIC - Eye Exam Eye Exam: EOMI - ENT Exam ENT Exam: Mucous Membranes Moist - Respiratory Exam Respiratory Exam: Clear to Ausculation Bilateral. absent: Wheezes - Cardiovascular Exam Cardiovascular Exam: REGULAR RHYTHM - GI/Abdominal Exam GI & Abdominal Exam: Soft. absent: Tenderness - Extremities Exam Extremities Exam: absent: Calf Tenderness, Pedal Edema Additional comments: L hand 3rd digit, dressing placed, cdi - Neurological Exam Neurological Exam: Alert, Awake - Psychiatric Exam Psychiatric exam: Normal Mood - Skin Skin Exam: Dry, Warm Assessment and Plan - Assessment and Plan (Free Text) Assessment: Herpetic brent Left hand third digit cellulitis s/p I&D with gram positive cocci Ulcerative colitis Hypertension Cont with Linazolid and Azyclovir. Upon d/c cont Valtrex 1gm BID for 30 days and Zyvox 600mg BID for 30 days MRI + for osteo F/u HIV - neg Follow-up wound cultures - gram positive cocci Follow-up surgery recommendations Hand x-ray showed no osteomyelitis, however did show soft tissue defect over the dorsum aspect of the third digit Continue to monitor for any changes Case and plan to be reviewed and discussed with Dr. Frazier. <Jeferson Frazier - Last Filed: 10/16/18 16:18> Objective - Vital Signs/Intake and Output Vital Signs (last 24 hours): Temp Pulse Resp BP Pulse Ox 98 F 90 20 136/80 96 10/16/18 06:00 10/16/18 06:00 10/16/18 06:00 10/16/18 06:00 10/16/18 06:00 Intake and Output: 10/16/18 10/16/18 06:59 18:59 Intake Total 620 480 Balance 620 480 - Medications Medications: Current Medications Bacitracin (Bacitracin) 1 ea TOP 0000,0600,1200,1800 [facility] Last Admin: 10/16/18 12:06 Dose: 1 ea Sodium Chloride (Sodium Chloride 0.9%) 1,000 mls @ 100 mls/hr IV .Q10H [facility] Last Admin: 10/15/18 14:17 Dose: 100 mls/hr Linezolid (Zyvox) 600 mg PO BID [facility]; Protocol Stop: 11/13/18 18:01 Valacyclovir HCl (Valtrex) 1 gm PO BID [facility]; Protocol Stop: 11/13/18 18:01 - Labs Labs: 10/15/18 06:15 10/14/18 14:30 PT 13.4 SECONDS (9.4-12.5) H 10/14/18 14:40 INR 1.21 10/14/18 14:40 APTT 35.5 Seconds (26.9-38.3) 10/14/18 14:40 Attending/Attestation - Attestation I have personally seen and examined this patient.: Yes I have fully participated in the care of the patient.: Yes I have reviewed all pertinent clinical information, including history, physical exam and plan: Yes
== END 2018-10-16 18:37 | disposition home or self-care (01) | DRG 603 ==
LOC: ED 13:34 → ERH 15:35 → 5RNO 17:33
PROVIDERS: ADMIT Internal Medicine; ATTEND Internal Medicine
DX: L03.012 Cellulitis of left finger (principal); K51.90 Ulcerative colitis, unspecified, without complications; M86.9 Osteomyelitis, unspecified; I10 Essential (primary) hypertension; Z82.49 Family history of ischemic heart disease and other diseases of the circulatory system; Z94.7 Corneal transplant status; Z88.0 Allergy status to penicillin